=== PATIENT | female | born 1970 | race Caucasian/White ===

== ENCOUNTER 2017-09-08 17:23 | Inpatient (IN) | payer MEDICAID ==
[~2017-09-08] VITALS: Ht 152.4 cm; Wt 70.8 kg
[2017-09-08 17:46] VITALS: BP 139/70
--- NOTE | 2017-09-08 17:52 | NUR ---
Patient ambulated to bed 11.
--- NOTE | 2017-09-08 18:16 | NUR ---
ASSUMED PATIENT CARE, CONCUR WITH TRIAGE ASSESSMENT, PLACED IN ER 11, ORIENTED TO PLAN OF CARE.
[2017-09-08] MEDS ORDERED: ONDANSETRON 4 MG/2 ML VIAL IVP ONE (18:20)
[2017-09-08] MEDS ORDERED: KETOROLAC 30 MG/ML VIAL IVP ONE (18:20)
[2017-09-08] MEDS ORDERED: NACL 0.9% 1,000 ML IV ONE (18:20)
[2017-09-08 18:55] LABS: MEAN CORPUSCULAR HEMOGLOBIN 30 pg (27-31); MEAN CORPUSCULAR HGB CONC 34 g/dL (33-37); MEAN CORPUSCULAR VOLUME 87 fL (80-94); PLATELET COUNT (AUTO) 240 K/uL (140-450); RED BLOOD CELL COUNT(AUTO) 4.35 MIL/uL (4.20-5.40); RED CELL DISTRIBUTION WIDTH 12.3 % (11.6-13.7); WHITE BLOOD COUNT (AUTO) 15.8 K/uL (4.8-10.8)
[2017-09-08 18:57] LABS: APPEARANCE,URINE CLEAR (CLEAR); BILIRUBIN,URINE NEGATIVE (NEGATIVE); BLOOD, URINE 1+ (NEGATIVE); COLOR,URINE YELLOW (YELLOW); LEUKOCYTE ESTERASE ,URINE NEGATIVE (NEGATIVE); NITRITE, URINE NEGATIVE (NEGATIVE); UGLUCOSE NEGATIVE (NEGATIVE)
[2017-09-08 19:01] LABS: RBC,URINE 0-5 (RARE) /HPF (0-5); WBC,URINE 0-5 (RARE) /HPF (0-5)
--- NOTE | 2017-09-08 19:04 | NUR ---
DISPO AND MEDICAL DECISION MAKING, INPATIENT ADMISSION FOR FURTHER MANAGEMENT. MD AT BEDSIDE UPDATING PATIENT ACCORDINGLY.
[2017-09-08 19:05] LABS: ALBUMIN 3.6 g/dL (3.4-5.0); ANION GAP 10.6 (8-16); CARBON DIOXIDE 29.6 mmol/L (21-32); CREATININE 0.7 mg/dL (0.6-1.3); POTASSIUM 3.2 mmol/L (3.5-5.1); TOTAL BILIRUBIN 0.8 mg/dL (0.0-1.0)
[2017-09-08] MEDS ORDERED: HYDROcodone/APAP 7.5/325 MG 1 TAB PO PRN (19:20)
[2017-09-08 19:35] LABS: LYMPHOCYTES % (MANUAL) 3 % (20-46); MONOCYTES % (MANUAL) 7 % (5-12)
[2017-09-08] MEDS: LACTOBACILLUS RHAMNOSUS GG 1 EACH CAP PO SCH (19:45)
[2017-09-08] MEDS ORDERED: ACETAMINOPHEN 325 MG TAB ONE (20:09)
--- NOTE | 2017-09-08 20:10 | NUR ---
Patient will be admitted to care of DR WADE. Admited to TELE. Will go to [id number]. Belongings list completed. Report to
[2017-09-08 20:13] LABS: BARBITURATE, URINE NEG. ng/ml (NEG <=200); BENZODIAZEPINE, URINE NEG. ng/mL (NEG <=200); CANNABINOID, URINE NEG. ng/mL (NEG <=50); COCAINE, URINE NEG. ng/mL (NEG <=300); OPIATE, URINE NEG. ng/mL (NEG <=2000); PHENCYCLIDINE SCREEN,URINE NEG. ng/mL (NEG <=25)
[2017-09-08 20:20] VITALS: BP 113/70
--- NOTE | 2017-09-08 20:20 | NUR ---
PATIENT ADMITTED TO THE UNIT FROM ER. PATIENT IS AWAKE, ALERT AND ORIENTED. AMBULATORY. NO SIGNS AND SYMPTOMS OF DISTRESS NOTED. NO COMPLAINTS OF PAIN AT THIS TIME. SKIN IS INTACT. IV SITE NOTED ON RIGHT AC, ASYMPTOMATIC, INTACT, PATENT. BED IN LOWEST POSITION, SIDE RAILS UP AND CALL LIGHT WITHIN REACH. WILL CONTINUE TO MONITOR.
[2017-09-08 20:46] LABS: PROTHROMBIN TIME 11.2 secs (10.8-13.4)
--- NOTE | 2017-09-08 21:00 | NUR ---
PATIENT SEEN BY DR. MALDONADO
[2017-09-08 21:04] LABS: CHOL/HDL RATIO 3.2 (1-4.5); FREE T4 (FREE THYROXINE) 0.88 ng/dL (0.76-1.46); MAGNESIUM 1.8 mg/dL (1.8-2.4); PHOSPHORUS 3.1 mg/dL (2.5-4.9); THYROID STIMULATING HORMONE 0.77 uIU/mL (0.34-3.74)
[2017-09-08] MEDS ORDERED: POTASSIUM CHLORIDE 40 MEQ, LIDOCAINE 1% 25 MG in NACL 0.9% 250 ML IV SCH (21:35)
[2017-09-08] MEDS: DOCUSATE SODIUM 100 MG GELCAP PO SCH (22:05)
[2017-09-08] MEDS: ACETAMINOPHEN 325 MG TAB PO PRN (22:06)
[2017-09-08] MEDS: NACL 0.9% 1,000 ML IV SCH (22:20)
[2017-09-08] MEDS ORDERED: POTASSIUM CHLORIDE 10 MEQ TABER PO SCH (22:30)
[2017-09-08] MEDS ORDERED: PIPERACILLIN/TAZOBACTAM 3.375 GM VIAL IV ONE (23:04)
[2017-09-09] VITALS: BP 107/68
[2017-09-09] MEDS ORDERED: PIPERACILLIN/TAZOBACTAM 3.375 GM in DEXTROSE 5% 50 ML IV SCH ×2
--- NOTE | 2017-09-09 03:08 | NUR ---
CHECKED ON PATIENT. PATIENT IS ASLEEP, NO SIGNS AND SYMPTOMS OF DISTRESS NOTED. BED IN LOWEST POSITION, SIDE RAILS UP, CALL LIGHT WITHIN REACH. WILL CONTINUE TO MONITOR.
--- NOTE | 2017-09-09 03:19 | NUR ---
ACCORDING TO DR. MALDONADO, STILL AWAITING CALL FROM DR. MCGEE REGARDING PATIENT'S PENDING SURGERY.
[2017-09-09 04:00] VITALS: BP 100/63
[2017-09-09] MEDS: NACL 0.9% 1,000 ML IV SCH ×3 (04:24→21:00)
[2017-09-09] MEDS: LEVOFLOXACIN 750 MG/D5W PREMIX 150 ML IV SCH (04:57)
[2017-09-09 06:31] LABS: BASOPHILS # (AUTO) 0.1 K/uL (0.00-0.22); BASOPHILS % (AUTO) 0.5 % (0.0-2.0); EOSINOPHILS # (AUTO) 0.1 K/uL (0-0.4); EOSINOPHILS % (AUTO) 1.1 % (0.0-4.0); HEMATOCRIT 34.3 % (36-48); HEMOGLOBIN 11.6 g/dL (12.0-16.0); LYMPHOCYTES # (AUTO) 0.9 K/uL (2.5-16.5); LYMPHOCYTES % (AUTO) 6.7 % (20.5-51.1); MEAN CORPUSCULAR HEMOGLOBIN 30 pg (27-31); MEAN CORPUSCULAR HGB CONC 34 g/dL (33-37); MEAN CORPUSCULAR VOLUME 88 fL (80-94); MONOCYTES # (AUTO) 0.7 K/uL (0.8-1.0); MONOCYTES % (AUTO) 5.1 % (1.7-9.3); NEUTROPHILS # (AUTO) 11.1 K/uL (1.8-7.7); NEUTROPHILS % (AUTO) 86.6 % (42.2-75.2); PLATELET COUNT (AUTO) 194 K/uL (140-450); RED CELL DISTRIBUTION WIDTH 12.5 % (11.6-13.7)
[2017-09-09] MEDS: metroNIDAZOLE 500 MG/NS PREMIX 100 ML IV SCH ×3 (06:38→20:54)
[2017-09-09] MEDS: ACETAMINOPHEN 325 MG TAB PO PRN ×3 (06:43→18:42)
--- NOTE | 2017-09-09 07:21 | NUR ---
ASSUMED CONTINUITY OF CARE. NO SIGNS AND SYMPTOMS OF ACUTE DISTRESS NOTICED. INITIAL ASSESSMENT DONE. KEEP COMFORTABLE ON BED. EXPLAINED DIAGNOSIS, PLAN OF CARE, PAIN MANAGEMENT TEACHING, USE OF CALL LIGHT/BED/TV/BATHROOM. CALL LIGHT WITHIN REACH.
--- NOTE | 2017-09-09 07:23 | NUR ---
PATIENT REPORT GIVEN TO MORNING NURSE AT BEDSIDE. PATIENT IS IN STABLE CONDITION
[2017-09-09 07:37] LABS: ANION GAP 12.7 (8-16); CARBON DIOXIDE 23.9 mmol/L (21-32); CREATININE 0.7 mg/dL (0.6-1.3); POTASSIUM 3.6 mmol/L (3.5-5.1)
[2017-09-09 07:43] LABS: WHITE BLOOD COUNT (AUTO) 12.9 K/uL (4.8-10.8)
[2017-09-09 07:47] LABS: MAGNESIUM 1.9 mg/dL (1.8-2.4); PHOSPHORUS 2.7 mg/dL (2.5-4.9)
[2017-09-09 08:00] VITALS: BP 104/63
[2017-09-09] MEDS: DOCUSATE SODIUM 100 MG GELCAP PO SCH ×2 (08:26→20:54)
[2017-09-09] MEDS: ATORVASTATIN 20 MG TAB PO SCH (08:27)
[2017-09-09] MEDS: LACTOBACILLUS RHAMNOSUS GG 1 EACH CAP PO SCH (08:27)
[2017-09-09] MEDS: PANTOPRAZOLE 40 MG INJ VIAL IVP SCH (09:36)
--- NOTE | 2017-09-09 10:27 | NUR ---
PATIENT HAS BEEN SCREENED AND CATEGORIZED MODERATE NUTRITION RISK. PATIENT WILL BE SEEN WITHIN 3-5 DAYS OF ADMISSION. 09/11/17 - 09/13/17 PRAVIN TOLBERT MBA, RD
[2017-09-09 12:00] VITALS: BP 103/69
[2017-09-09 16:00] VITALS: BP 102/64
--- NOTE | 2017-09-09 17:00 | NUR ---
REPORT GIVEN TO MALU ELLSWORTH FOR [id number] OF CARE. IVF INFUSING WELL. IN STABLE CONDITION.
--- NOTE | 2017-09-09 17:05 | NUR ---
RECEIVED REPORT FROM CYNTHIA MEJÍA PT IS RESTING IN BED, NO S/S OF RESPIRATORY DISTRESS OR DISCOMFORT NOTED, FAMILY IS AT BEDSIDE, CALL LIGHT WITHIN REACH.
--- NOTE | 2017-09-09 18:02 | NUR ---
CALLED DR. MCGEE AT REGARDING PT. CONSULT. LEFT MESSAGE AND CALL BACK NUMBER. INFORMED CHARGE NURSE HENRRY ELLSWORTH.
--- NOTE | 2017-09-09 18:24 | NUR ---
ASKED DR. MALDONADO THAT PT. AND PT. FAMILY MEMBERS ASKING FOR ANY PLAN FOR PT.. DR. MALDONADO SAID THAT SHE WILL CALL DR. MCGEE. INFORMED CHARGE NURSE HENRRY ELLSWORTH.
--- NOTE | 2017-09-09 18:30 | NUR ---
CHARGE NURSE HENRRY RUSSELL -TELLY SPOKE TO DR. MCGEE VIA PHONE AND INFORMED OF PT. CONSULT. CHARGE NURSE HENRRY RUSSELL -TELLY TRANSFERRED DR. MCGEE PHONE CONVERSATION TO DR. MALDONADO.
--- NOTE | 2017-09-09 19:22 | NUR ---
ENDORSED PT TO PRINTING FILM STRIPPER NURSE FOR CONTINUITY OF CARE, PT STABLE AT THIS TIME, PATIENT'S IS AT BEDSIDE.
--- NOTE | 2017-09-09 19:22 | NUR ---
RECEIVED FROM AM RN IN BED SITTING UP AND EATING DINNER. A/O X4 . CLEAR SPEECH. SPOUSE AT BEDSIDE. IVF SITE INTACT AND NO INFILTRATION. CALL LIGHT WITH IN REACH AND REMINDED THAT SHE IS NPO.
[2017-09-09 20:00] VITALS: BP 105/72
--- NOTE | 2017-09-09 21:39 | NUR ---
PT. STILL AWAKE AND REMINDED THAT SHE NEEDS TO BE NPO STARTING MIDNIGHT. IT MEANS NO FOOD OR LIQUID . EXPLAINED TO HER AND SPOUSE PROS AND CONS ABOUT IT. ABLE TO VERBALIZE IN [place]. A/O X4.
--- NOTE | 2017-09-09 23:55 | NUR ---
PT. STILL AWAKE. DENIES PAIN. "TOLERABLE" PT. ENCOURAGED TO SLEEP. PT. STILL USING CELL PHONE. TELEMETRY MONITORING.
[2017-09-10 00:25] VITALS: BP 106/64
[2017-09-10 04:56] VITALS: BP 99/61
[2017-09-10] MEDS: metroNIDAZOLE 500 MG/NS PREMIX 100 ML IV SCH ×3 (05:12→21:46)
[2017-09-10] MEDS: LEVOFLOXACIN 750 MG/D5W PREMIX 150 ML IV SCH (05:12)
[2017-09-10] MEDS: ACETAMINOPHEN 325 MG TAB PO PRN (05:18)
--- NOTE | 2017-09-10 05:20 | NUR ---
REQUESTED TO MEDICATE FOR HEADACHE. CRYING. MEDICATED WITH TYLENOL P.O. AND GAVE WATER OF 20 ML WATER.
--- NOTE | 2017-09-10 06:51 | NUR ---
PT. BEEN SLEEPING IN AND OUT. RESTLESS. UNABLE TO SLEEP WELL THIS SHIFT. STATED THAT THE NEIGHBOR IS SNORING LOUDLY AND UN ABLE TO SLEEP WELL. TELEMETRY MONITORING.
[2017-09-10 07:16] LABS: BASOPHILS # (AUTO) 0.1 K/uL (0.00-0.22); BASOPHILS % (AUTO) 1.1 % (0.0-2.0); EOSINOPHILS # (AUTO) 0.2 K/uL (0-0.4); EOSINOPHILS % (AUTO) 1.4 % (0.0-4.0); HEMATOCRIT 33.8 % (36-48); HEMOGLOBIN 11.2 g/dL (12.0-16.0); LYMPHOCYTES # (AUTO) 1.3 K/uL (2.5-16.5); LYMPHOCYTES % (AUTO) 11.1 % (20.5-51.1); MEAN CORPUSCULAR HEMOGLOBIN 29 pg (27-31); MEAN CORPUSCULAR HGB CONC 33 g/dL (33-37); MEAN CORPUSCULAR VOLUME 89 fL (80-94); MONOCYTES # (AUTO) 0.5 K/uL (0.8-1.0); MONOCYTES % (AUTO) 4.8 % (1.7-9.3); NEUTROPHILS # (AUTO) 9.2 K/uL (1.8-7.7); NEUTROPHILS % (AUTO) 81.6 % (42.2-75.2); PLATELET COUNT (AUTO) 205 K/uL (140-450); RED BLOOD CELL COUNT(AUTO) 3.81 MIL/uL (4.20-5.40); RED CELL DISTRIBUTION WIDTH 12.4 % (11.6-13.7)
--- NOTE | 2017-09-10 07:31 | NUR ---
ENDORSED TO THE NEXT RN FOR CONTINUITY OF CARE. AWARE THAT SHE HAS SURGERY AT 0800. AWAKE AND ALERT. ORIENTED. ON THE PHONE TALKING TO SPOUSE.
--- NOTE | 2017-09-10 07:32 | NUR ---
RECEIVED PT ON BED AAOX4. NO SOB NOTED. NO C/O PAIN AT THIS TIME. IV TO RT AC PATENT ENT AND INTACT. CHEST CLEAR. ABDOMEN SOFT, BOWEL SOUNDS PRESENT. NO EDEMA NOTED. INSTRUCTED PY TO REMAIN NPO FOR PROCEDURE. PT VERBALIZED UNDERSTANDING.
[2017-09-10 07:38] LABS: ANION GAP 11.1 (8-16); CARBON DIOXIDE 25.3 mmol/L (21-32); CREATININE 0.7 mg/dL (0.6-1.3); POTASSIUM 3.4 mmol/L (3.5-5.1)
[2017-09-10] MEDS: NACL 0.9% 1,000 ML IV SCH ×2 (07:42→13:16)
[2017-09-10 07:46] LABS: MAGNESIUM 1.8 mg/dL (1.8-2.4); PHOSPHORUS 2.5 mg/dL (2.5-4.9)
--- NOTE | 2017-09-10 07:55 | NUR ---
PT SEEN BY DR. MCGEE AT THE BEDSIDE. SURGERY DISCUSSED BY SURGEON, PT VERBALIZED UNDERSTANDING. PT WHEELED TO SURGERY IN STABLE CONDITION. NPO MAINTAINED.
[2017-09-10 07:57] LABS: WHITE BLOOD COUNT (AUTO) 11.3 K/uL (4.8-10.8)
[2017-09-10 08:00] VITALS: BP 96/55
[2017-09-10] MEDS ORDERED: PROPOFOL 200 MG/20 ML VIAL IV ONE (08:00)
[2017-09-10] MEDS ORDERED: ONDANSETRON 4 MG/2 ML VIAL ONE (08:00)
[2017-09-10] MEDS ORDERED: ROCURONIUM 50 MG/5 ML VIAL IV ONE (08:00)
[2017-09-10] MEDS ORDERED: KETOROLAC 60 MG/2 ML VIAL IM ONE (08:00)
[2017-09-10] MEDS ORDERED: ceFAZolin 1,000 MG VIAL ONE (08:00)
[2017-09-10] MEDS ORDERED: DESFLURANE 240 ML BTL INH ONE (08:00)
[2017-09-10] MEDS ORDERED: SUCCINYLCHOLINE CHLORIDE 200 MG/10 ML VIAL IVP ONE (08:00)
[2017-09-10] MEDS ORDERED: BUPIVACAINE-MPF 0.25% 30 ML VIAL INJ ONE (08:09)
[2017-09-10] MEDS ORDERED: fentaNYL 0.05 MG/ML VIAL ONE (08:12)
[2017-09-10] MEDS ORDERED: MIDAZOLAM 2 MG/2 ML VIAL ONE (08:12)
[2017-09-10] MEDS ORDERED: MORPHINE SULFATE 4 MG/ML SYR ONE ×2 (08:13→10:00)
[2017-09-10] MEDS: ATORVASTATIN 20 MG TAB PO SCH (09:00)
[2017-09-10] MEDS: PANTOPRAZOLE 40 MG INJ VIAL IVP SCH (09:00)
[2017-09-10] MEDS ORDERED: MORPHINE SULFATE 4 MG/ML SYR IVP PRN ×2 (09:00)
[2017-09-10] MEDS ORDERED: MORPHINE SULFATE 2 MG/ML SYR IVP PRN (09:00)
[2017-09-10] MEDS ORDERED: MIDAZOLAM 2 MG/2 ML VIAL IV ONE (09:00)
[2017-09-10] MEDS: DOCUSATE SODIUM 100 MG GELCAP PO SCH ×2 (09:00→21:45)
[2017-09-10] MEDS: LACTOBACILLUS RHAMNOSUS GG 1 EACH CAP PO SCH (09:00)
[2017-09-10] MEDS ORDERED: METOCLOPRAMIDE 10 MG/2 ML INJ VIAL IVP PRN (09:00)
[2017-09-10 10:15] VITALS: BP 99/60
--- NOTE | 2017-09-10 10:15 | NUR ---
PT BACK FROM SURGERY IN STABLE CONDITION. S/P LAP APPY. PT SLEEPING, AROUSABLE. NO SOB NOTED. NO COMPLAINTS AT THIS TIME. WITH 4 SMALL ABDOMINAL INCISIONS DRY, STERI STRIPS INTACT. AT THE BEDSIDE.
[2017-09-10] MEDS ORDERED: SENNA 8.6 MG TAB PO PRN (10:55)
[2017-09-10] MEDS: ONDANSETRON 4 MG/2 ML VIAL IVP PRN (13:16)
--- NOTE | 2017-09-10 13:16 | NUR ---
PT C/O NAUSEA, MEDICATED PT WITH ZOFRAN IVP ORDERED PRN. WILL MONITOR PT.
[2017-09-10 16:00] VITALS: BP 102/66
--- NOTE | 2017-09-10 16:30 | NUR ---
PT VOIDED FREELY IN THE BATHROOM. ACTIVITY TOLERATED WELL.
--- NOTE | 2017-09-10 17:00 | NUR ---
TELE BOX REMOVED ORDERED. PT ON MED SURG STATUS.
--- NOTE | 2017-09-10 19:06 | NUR ---
PT AWAKE, NO SOB NOTED. NO SIGNS OF PAIN. WILL ENDORSE TO NEXT SHIFT NURSE FOR CONTINUITY OF CARE.
--- NOTE | 2017-09-10 19:07 | NUR ---
RECEIVED BEDSIDE REPORT FROM DAY SHIFT NURSE LUIS RN, PT STABLE, NO DISTRESS NOTED, IV TO THE R AC 18G RUNNING NS @110ML/HR, INFUSING WELL, REPORTED HAVING NO PAIN AT THIS MOMENT, INITIAL ASSESSMENT DONE, ALL SAFETY PRECAUTION MET, WILL CONTINUE TO MONITOR.
[2017-09-10 20:00] VITALS: BP 101/68
--- NOTE | 2017-09-10 20:36 | NUR ---
PT C/O OF PAIN 5/10 ON THE SURGICAL SITE, PAIN MEDICATION GIVEN, PT TOLERATED WELL, CALL LIGHT WITHIN REACH, WILL CONTINUE TO MONITOR.
[2017-09-11] VITALS: BP 103/70
[2017-09-11] MEDS: NACL 0.9% 1,000 ML IV SCH ×2 (01:07→11:00)
--- NOTE | 2017-09-11 02:17 | NUR ---
RECEIVED BEDSIDE REPORT FROM DAY SHIFT NURSE LUIS VARNER, PT STABLE, NO DISTRESS NOTED, IV TO THE R AC 18G RUNNING NS @110ML/HR, INFUSING WELL, REPORTED HAVING NO PAIN AT THIS MOMENT, INITIAL ASSESSMENT DONE, ALL SAFETY PRECAUTION MET, WILL CONTINUE TO MONITOR. Addendum: 09/11/17 at 0224 by Brooklyn Vargas RN WRONG TIME
[2017-09-11] MEDS: LEVOFLOXACIN 750 MG/D5W PREMIX 150 ML IV SCH (04:54)
[2017-09-11] MEDS ORDERED: metroNIDAZOLE 500 MG/NS PREMIX 100 ML IV ONE (06:22)
[2017-09-11] MEDS: ONDANSETRON 4 MG/2 ML VIAL IVP PRN (06:23)
[2017-09-11] MEDS: metroNIDAZOLE 500 MG/NS PREMIX 100 ML IV SCH (06:24)
--- NOTE | 2017-09-11 06:24 | NUR ---
PT C/O OF NAUSEA, NAUSEA MEDICATION GIVEN, PT TOLERATED WELL, NO DISTRESS NOTED, LEFT RESTING, CALL LIGHT WITHIN REACH.
--- NOTE | 2017-09-11 07:15 | NUR ---
ENDORSED PT TO DAY SHIFT NURSE ITZEL RN, PT STABLE NO DISTRESS NOTED.
--- NOTE | 2017-09-11 07:20 | NUR ---
RECEIVED BEDSIDE REPORT FROM DIRECTOR OF SPECIAL EVENTS RN, PT IS STABLE, NO DISTRESS NOTED, IV TO THE R AC 18G RUNNING NS @110ML/HR, INFUSING WELL, DENIES PAIN AT THIS THIS, INITIAL ASSESSMENT DONE, ALL SAFETY PRECAUTION MET, WILL CONTINUE TO MONITOR.
[2017-09-11 07:54] LABS: BASOPHILS # (AUTO) 0.1 K/uL (0.00-0.22); MEAN CORPUSCULAR VOLUME 89 fL (80-94); MONOCYTES # (AUTO) 0.4 K/uL (0.8-1.0); NEUTROPHILS # (AUTO) 6.7 K/uL (1.8-7.7)
[2017-09-11 07:59] LABS: MAGNESIUM 1.7 mg/dL (1.8-2.4); PHOSPHORUS 2.7 mg/dL (2.5-4.9)
[2017-09-11 08:00] VITALS: BP 104/68
--- NOTE | 2017-09-11 08:00 | NUR ---
INCISIONS AND STERISTRIPS IS INTACT, CLEAN AND DRY. PT IN STABLE CONDITION. WILL CONTINUE TO MONITOR.
[2017-09-11 08:08] LABS: ANION GAP 12.2 (8-16); BASOPHILS % (AUTO) 1.3 % (0.0-2.0); CARBON DIOXIDE 25.1 mmol/L (21-32); CREATININE 0.7 mg/dL (0.6-1.3); EOSINOPHILS % (AUTO) 0.5 % (0.0-4.0); MEAN CORPUSCULAR HEMOGLOBIN 30 pg (27-31); MEAN CORPUSCULAR HGB CONC 33 g/dL (33-37); MONOCYTES % (AUTO) 4.5 % (1.7-9.3); NEUTROPHILS % (AUTO) 81.7 % (42.2-75.2); PLATELET COUNT (AUTO) 195 K/uL (140-450); POTASSIUM 3.3 mmol/L (3.5-5.1); RED BLOOD CELL COUNT(AUTO) 3.36 MIL/uL (4.20-5.40); RED CELL DISTRIBUTION WIDTH 12.5 % (11.6-13.7); WHITE BLOOD COUNT (AUTO) 8.2 K/uL (4.8-10.8)
[2017-09-11] MEDS: DOCUSATE SODIUM 100 MG GELCAP PO SCH (09:00)
[2017-09-11] MEDS: ATORVASTATIN 20 MG TAB PO SCH (09:49)
[2017-09-11] MEDS: LACTOBACILLUS RHAMNOSUS GG 1 EACH CAP PO SCH (09:49)
[2017-09-11] MEDS: PANTOPRAZOLE 40 MG INJ VIAL IVP SCH (09:51)
--- NOTE | 2017-09-11 11:00 | NUR ---
SPOUSE AT BEDSIDE. PT WAS UP AND WALKED TO THE RESTROOM. PT STATED SHE HAD BM AND IT'S LOOSE. WILL CONTINUE TO MONITOR
[2017-09-11] MEDS ORDERED: POTASSIUM CHLORIDE 10 MEQ TABER PO SCH (13:00)
[2017-09-11] MEDS ORDERED: DOCU-299 PO (13:23)
[2017-09-11] MEDS ORDERED: ACET-9529 PO (13:23)
--- NOTE | 2017-09-11 14:00 | NUR ---
DISCHARGE INSTRUCTIONS AND MEDICATION TEACHING GIVEN. PT VERBALIZED UNDERSTANDING. SPOUSE IS AT BEDSIDE. IV CATH REMOVED, TIP INTACT, PRESSURE APPLIED. PT DENIES PAIN AT THIS TIME. PT LEFT IN STABLE CONDITION AND WITH ALL HER BELONGINGS.
== END 2017-09-11 14:00 | disposition home or self-care (01) | DRG 225 ==
LOC: MED 17:23 → MTU 19:24
PROVIDERS: ADMIT Family Medicine; ATTEND Family Medicine
PROC: 0DTJ4ZZ Resection of Appendix, Percutaneous Endoscopic Approach (ICD-10-PCS; principal; 2017-09-10 08:00)
DX: K35.80 Unspecified acute appendicitis (principal); E27.8 Other specified disorders of adrenal gland; E78.5 Hyperlipidemia, unspecified; E87.6 Hypokalemia; Z98.51 Tubal ligation status; Z83.3 Family history of diabetes mellitus; Z82.49 Family history of ischemic heart disease and other diseases of the circulatory system
CPT/HCPCS: 36415; 71010; 80048; 80053; 80305; 81001; 81025; 82140; 82150; 83036; 83605; 83690; 83735; 84100; 84439; 84443; 84484; 85025; 85610; 85730; 87040; 87081; 87086; 88304; 93005; 96361; 96374; 96375; 99285; C9113; J0330; J0690; J1644; J1885; J1956; J2001; J2250; J2270; J2405; J2543; J2704; J3010; J3480; J3490; J7030; J7060